=== PATIENT | male | born 2000 | race Caucasian/White ===

== ENCOUNTER 2025-01-13 16:36 | Emergency (ER) | payer BC ==
[~2025-01-13] VITALS: Ht 167.6 cm; Wt 68.9 kg
[2025-01-13 16:39] VITALS: O2SAT 97
[2025-01-13 16:48] VITALS: BP 131/83; PULSE 61; RESP 14; TEMP 36.7; O2SAT 100
[2025-01-13] MEDS ORDERED: METH-653 MT (18:06)
[2025-01-13] MEDS ORDERED: IBUP-2029 MT (18:06)
[2025-01-13] MEDS: IBUPROFEN 600MG TABLET PO ONE (18:26)
[2025-01-13] MEDS: METHOCARBAMOL 500MG TABLET PO ONE (18:27)
== END 2025-01-13 19:10 | disposition home or self-care (01) ==
LOC: ER 16:36
DX: S33.5XXA Sprain of ligaments of lumbar spine, initial encounter (principal); X50.0XXA Overexertion from strenuous movement or load, initial encounter; Y93.89 Activity, other specified; Y92.89 Other specified places as the place of occurrence of the external cause; Y99.8 Other external cause status
CPT/HCPCS: 99283